=== PATIENT | female | born 1990 | race Caucasian/White ===

== ENCOUNTER 2021-01-13 15:43 | Emergency (ER) | payer OTHER ==
[2021-01-13 16:08] VITALS: BP 121/78; PULSE 66; TEMP 99.6; BMI 22.1
[2021-01-13] MEDS ORDERED: SULFAMETHOXAZOLE/TRIMETHOPRIM 800MG/160MG D.S. TABLET PO ONE (16:11)
[2021-01-13] MEDS ORDERED: SULFAMETHOXAZOLE/TRIMETHOPRIM 800MG/160MG D.S. TABLET ONE (16:13)
== END 2021-01-13 16:20 | disposition home or self-care (01) ==
LOC: FER 15:43
DX: N10 Acute pyelonephritis (principal)
CPT/HCPCS: 81003; 81015; 82962; 87086; 87186; 99283-25